=== PATIENT | male | born 2000 | race Caucasian/White ===

== ENCOUNTER 2024-01-14 01:21 | Emergency (ER) | payer BC, SELFPAY ==
[2024-01-14 01:25] VITALS: BP 134/65; PULSE 88; RESP 20; TEMP 36.7; O2SAT 97; BMI 28.3
--- NOTE | 2024-01-14 01:40 | ED_ITS ---
HPI - Extremity Injury (Upper) General Chief Complaint: Extremity Injury, Upper Stated Complaint: UE INJURY Time Seen by Provider: 01/14/24 01:37 Source: patient Mode of arrival: walk-in Limitations: no limitations History of Present Illness HPI narrative: injury to left middle 2 fingers one week ago at work. describes developed of purple discoloration of his nails shortly afterwards but pain tolerable and he continued at work. He now presents once week later complaining of increased pain of both the middle and ring finger left hand at the nails. No numbness or weakness. No fever Related Data Allergies Allergy/AdvReac Type Severity Reaction Status Date / Time No Known Drug Allergies Allergy Verified 01/14/24 01:27 Review of Systems ROS Status of ROS 10 or more systems reviewed and unremark able except as noted in history and below Exam Constitutional Vital Signs, click to edit/add: Last Vital Signs Temp 98.1 F 01/14/24 01:25 Pulse 88 01/14/24 01:25 Resp 20 01/14/24 01:25 BP 134/65 01/14/24 01:25 Pulse Ox 97 01/14/24 01:25 O2 Del Method Room Air 01/14/24 01:25 Common normals: no apparent distress, average body habitus, oriented x3 and no limitations HENMT Common normals: normocephalic and head/scalp atraumatic Eye Common normals: EOMs intact bilaterally and conjunctivae normal Respiratory Common normals: normal respiratory effort and no retractions Cardio Common normals: regular rate, regular rhythm, S1 normal heart sound and S2 normal heart sound Extremity Other: left middle and ring finger with subungual hematomas. mod. tenderness. No definite swelling Neuro Common normals: oriented x3, CN's II-XII intact bilaterally, moves all extremities and no focal motor deficits Psych Appearance: grossly normal Course Vital Signs Vital signs: Vital Signs Temperature 98.1 F 01/14/24 01:25 Pulse Rate 88 01/14/24 01:25 Respiratory Rate 20 01/14/24 01:25 Blood Pressure 134/65 01/14/24 01:25 Pulse Oximetry 97 01/14/24 01:25 Oxygen Delivery Method Room Air 01/14/24 01:25 Temperature 98.1 F 01/14/24 01:25 Pulse Rate 88 01/14/24 01:25 Respiratory Rate 20 01/14/24 01:25 Blood Pressure 134/65 01/14/24 01:25 Pulse Oximetry 97 01/14/24 01:25 Oxygen Delivery Method Room Air 01/14/24 01:25 MDM - Extremity Injury (Upper) MDM Narrative Medical decision making narrative: patient presents a week after crush injury to the left middle and ring fingers. Has subungual hematoma of both and mod tenderness. xrays ordered xrays returned neg for fracture. Patient and her father informed of the above. Patient given dose or motrin and discharged home Imaging Data Chest x-ray: Radiologist's impression: ITS Impressions Hand X-Ray 01/14/24 01:45 IMPRESSION: No acute left hand fracture, osseous malalignment or soft tissue gas following left hand crush injury. Electronically authenticated by: WILLIAM HERNANDEZ Date: 01/14/2024 02:48 Discharge Plan Discharge Stand Alone Forms: Portal Instructions Chief Complaint: Extremity Injury, Upper Clinical Impression: Subungual hematoma of finger of left hand Patient Disposition: Home, Self-Care Referrals: Angela Sanz NP [Primary Care Provider] - 1 week Discharge Date/Time: 01/14/24 03:29
--- NOTE | 2024-01-14 01:45 | XR_ITS ---
[facility] [id number] Patient Name: GREG DUENAS MRN: [id number] date: 2000 Sex: M Assigned Patient Location: ER Current Patient Location: ER Accession/Order Number: [id number] Exam Date: 01/14/2024 01:50 Report Date: 01/14/2024 02:48 At the request of: WIL JONES Procedure: XR hand LT min 3V EXAM: XR hand LT min 3V HISTORY: crush injury . Bruising to the third and fourth digits after smashing finger tips at work. COMPARISON: None. TECHNIQUE: AP, oblique and lateral left hand x-rays. FINDINGS: No acute or intrinsic osseous, articular or soft tissue abnormality is seen. XR/XR hand LT min 3V IMPRESSION: No acute left hand fracture, osseous malalignment or soft tissue gas following left hand crush injury. Electronically authenticated by: WILLIAM HERNANDEZ Date: 01/14/2024 02:48
== END 2024-01-14 03:29 | disposition home or self-care (01) ==
LOC: ER 01:28
PROVIDERS: Emergency Provider Internal Medicine; PCP Nurse Practitioner
DX: S60.132A Contusion of left middle finger with damage to nail, initial encounter (principal); S60.142A Contusion of left ring finger with damage to nail, initial encounter; W23.0XXA Caught, crushed, jammed, or pinched between moving objects, initial encounter
CPT/HCPCS: 73130; 99283